=== PATIENT | male | born 1935 | race Caucasian/White ===

== ENCOUNTER → 2017-03-17 | Outpatient (CLI) | payer OTHER ==
[~2017-03-17] MED LIST: AVALIDE 300-121 EACH PO; AVAPRO300 MG PO; AVODART0.5 MG PO; BUPROPION XL300 MG PO; CARAFATE1 GM PO; FLOMAX0.4 MG PO; GLUCOSAMINE &1 EACH PO; LEXAPRO10 MG PO; MEN'S MULTI-VI1 EACH PO; NORVASC5 MG PO; PRAVACHOL20 MG PO; PRAVASTATIN SOD10 MG PO; PROSCAR5 MG PO; PROTONIX40 MG PO; Protonix PO; SODIUM CHLORIDE1 G1; TRILEPTAL300 MG PO; TRILEPTAL600 MG PO; VITAMIN D1000 UNIT PO; VOLTAREN 1% GE100 GM TP; WELLBUTRIN XL300 MG PO; XANAX0.25 MG PO; Xanax PO
[2017-03-17 08:51] LABS: COMMENTS - BLOOD GASES NAC+; FI02 21 %; HEMOGLOBIN 18.9 (12.5-16.6); PCO2 40 mm Hg (35-45); PO2 73 mm Hg (80-100); SITE LR; pH 7.44 (7.35-7.45)
[2017-03-17 08:52] LABS: BASE EXCESS 2.8 mEq/L (-3 to +3); BICARBONATE 27.2 mEq/L (22-26); CARBOXY HGB 0.6 % (0-5); METHEMOGLOBIN 0.2 % (0-1.5); OXYGEN CONTENT 28.4 VOL %
== END | disposition home or self-care (01) ==
LOC: RES 07:45
PROVIDERS: Internal Medicine
DX: D75.1 Secondary polycythemia (principal)
CPT/HCPCS: 36600; 82803; 94060; 94726; 94729